=== PATIENT | female | born 1935 | race Caucasian/White ===

== ENCOUNTER → 2024-01-19 10:33 | Outpatient (REF) | payer MEDICARE, SELFPAY | LOC: PAVMRI 10:33 | PROVIDERS: FAMILY PHYSICIAN Family Medicine; OTHER PHYSICIAN Internal Medicine Rheumatology | DX: H53.9 Unspecified visual disturbance (principal); Z86.73 Personal history of transient ischemic attack (TIA), and cerebral infarction without residual deficits | CPT/HCPCS: 70544; 70547 ==

== ENCOUNTER 2024-07-17 12:49 | Emergency (ER) | payer MEDICARE, SELFPAY ==
[2024-07-17 13:00] VITALS: BP 138/70
--- NOTE | 2024-07-17 13:12 | ED.MUSCINJ ---
HPI-Injury
General
Chief Complaint: Musculo-Skeletal Complaint
Source: patient
Exam Limitations: none
Time Seen by Provider: 07/17/24 13:04
History of Present Illness-Injury
Initial Injury comments:
89 year old female IDDM presents after a fall she sustained today. She went off the curb and fell directly onto her knee. She complains of pain from her knee down through her foot. She did not hit her head. She denies neck or back pain. She
also notes foot pain. She is not anticoagulated. No other complaints at this time
Past History
Past History
ED Past Medical History: GERD, HTN, NIDDM and Other (RA/Sjogren's)
ED Past Surgical History: Orthopedic and Other
Social History
Tobacco: Non-smoker
Alcohol: None
Drug: None
Living: with family
Phy Exam
Physical Exam
Physical Exam:
General: Well-appearing female no acute respiratory distress
HEENT: Normocephalic atraumatic
Heart: Regular rate and rhythm
Lungs: Clear no wheeze
Musculoskeletal exam: Left knee with ecchymosis and swelling and tender anteriorly. She is also tender from the distal roque through to the medial foot. No deformities. Able to straight leg raise. Flexion limited
Vascular: 2+ dorsalis pedis pulse left
Injury Course
Orders/Labs/Results
Orders:
Orders
07/17/24 13:05
Knee, Left 4 or More Views [CR Knee - Left 4 Or More View*] Urgent
Comment:
Reason For Exam: fall, pain
07/17/24 13:11
CR Foot - Left Min 3 Views Urgent
Comment:
Reason For Exam: fall, pain
CR Leg Tibia/fibula Left 2 Vw Urgent
Comment:
Reason For Exam: pain
MDM/Problems Addressed
Differential Diagnosis Includes:
Left lower leg pain after trip and fall. Consider contusion versus fracture versus dislocation
X-rays left knee tib-fib and left foot pending
*Critical Care Note
Total Time (30-74mins, 75-104mins- exclusive of procedures): Not Applicable
Update Note
Update Note:
COVID earlier x-rays of the left knee tib-fib and foot are all reviewed personally and by radiologist. There is no fracture or dislocation. Patient reassured. Suspect contusion and sprain. She has a walker at home. She has not by herself at
home. She feels comfortable going home. She is currently with family who is in agreement. Stable for discharge
ED Attending Note
-
Portions of this chart may have been created with voice recognition software.� Occasional wrong word or��sound alike� substitutions may have occurred due to the inherent limitations of voice recognition software.
Discharge Plan
Departure
Patient Disposition: Home (Routine Discharge)
Date of Disposition: 07/17/24
Time of Disposition: 14:06
Patient with high blood pressure during this ER visit?: No
Discharge Problem:
Contusion
Instructions: Muscle and Bone Pain (DC)
Prescriptions:
No Action
exenatide microspheres [Bydureon] 2 MG/0.65 ML pen injector
2 mg SQ SA@0800
esomeprazole magnesium [Nexium] 20 MG capsule,delayed release(DR/EC)
20 mg PO HS
ondansetron 4 MG tablet,disintegrating
4 mg PO TIDPRN PRN (Reason: Nausea) Qty: 15 0RF
pravastatin 40 MG tablet
40 mg PO HS
amlodipine 5 MG tablet
5 mg PO DAILY
metformin 1,000 MG tablet
1,000 mg PO BID
lisinopril 5 MG tablet
5 mg PO BID
hydroxychloroquine 200 MG tablet
2 tab PO DAILY
ibandronate 150 MG tablet
150 mg PO MONTHLY
acetaminophen 325 MG tablet
650 mg PO Q4HPRN PRN (Reason: pain) Qty: 0 0RF
docusate sodium 100 MG capsule
100 mg PO BID Qty: 0 0RF
ezetimibe 10 MG tablet
10 mg PO DAILY Qty: 0 0RF
cyclosporine [Restasis] 10 DROPS dropperette
1 drops ophthalmic (eye) BID Qty: 0 0RF
Referrals:
Emil Schwartz DO [Family Provider] -
Activity Restrictions/Additional Instructions:
Use ibuprofen or Tylenol for pain. You may ice to the sore spots for additional pain relief. Use your walker if needed at home. Return if worse otherwise follow-up with your doctor
Interventions
Interventions:
*Risk Screen - Suicide Last Done: 07/17/24 13:19
*General Assessment Last Done: 07/17/24 13:02
*Neglect/Abuse Screening Last Done: 07/17/24 13:19
*ED COVID-19 Vaccine History Last Done: 07/17/24 13:19
ED-Musculoskeletal Assessment Last Done: 07/17/24 13:19
Discharge Date and Time
Print Language: NEPALI
== END 2024-07-17 14:35 | disposition home or self-care (01) ==
LOC: EMR 12:49
PROVIDERS: EMERGENCY PHYSICIAN Emergency Medicine; FAMILY PHYSICIAN Family Medicine
DX: S80.02XA Contusion of left knee, initial encounter (principal); W10.1XXA Fall (on)(from) sidewalk curb, initial encounter; E11.9 Type 2 diabetes mellitus without complications; I10 Essential (primary) hypertension; K21.9 Gastro-esophageal reflux disease without esophagitis; M35.00 Sjogren syndrome, unspecified; Z79.4 Long term (current) use of insulin
CPT/HCPCS: 99283; 73564; 73590; 73630

== ENCOUNTER → 2025-06-05 13:55 | Outpatient (REF) | payer MEDICARE, SELFPAY | LOC: HWRCS 13:55 | PROVIDERS: ATTENDING PHYSICIAN Internal Medicine Cardiovascular Disease; FAMILY PHYSICIAN Family Medicine | DX: I35.0 Nonrheumatic aortic (valve) stenosis (principal) | CPT/HCPCS: 93306 ==